=== PATIENT | female | born 2000 | race Asian ===

== ENCOUNTER 2021-11-01 04:34 | Emergency (ER) | payer SELFPAY ==
[~2021-11-01] VITALS: Ht 155 cm; Wt 50.0 kg
--- NOTE | 2021-11-01 04:46 | ED GU-Female ---
General Chief Complaint: OB < 20 WEEKS Stated Complaint: MISCARRIAGE Source: patient (VAGUE,LIMITED HISTORIAN) (JITENDRA TREJO DO) History of Present Illness Date Seen by Provider: Nov 01, 2021 Time Seen by Provider: 04:36 Initial Comments PT ARRIVES VIA EMS FROM HOME PT THINKS SHE IS ABOUT 3 MONTHS --CANNOT STATE WHEN LMP WAS GOT UP TO BATHROOM AT 0300, AND HAS HAD VAGINAL BLEEDING--JUST SAT ON TOILET FOR AN HOUR, BLEEDING INTO TOILET, AND CALLED EMS. HAS NOT USED ANY PADS NO ABDOMINAL PAIN, BUT DOES HAVE A LOWER BACK ACHE NO NAUSEA/VOMITING NO FEVER NO OB CARE PT IS --FIRST WAS FULL TERM, NORMAL AND DELIVERY WITHOUT COMPLICATIONS PT JUST CAME HERE LESS THAN 2 MONTHS AGO FROM [facility]. HAS NOT HAD COVID VACCINE PCP: NONE (JITENDRA TREJO DO) Allergies and Home Medications Allergies Coded Allergies: No Known Drug Allergies (Unverified , 11/01/21) Patient Home Medication List Home Medication List Reviewed: Yes (YANDY DERAS MD) No Active Prescriptions or Reported Meds Review of Systems Review of Systems Constitutional: no symptoms reported Respiratory: no symptoms reported Cardiovascular: no symptoms reported Gastrointestinal: no symptoms reported Genitourinary: see HPI : Yes Musculoskeletal: see HPI, back pain Skin: no symptoms reported Psychiatric/Neurological: No Symptoms Reported (JITENDRA TREJO DO) Past Biyjpsy-Fodors-Vfsoci Hx Patient Social History Tobacco Use?: No Substance use?: No Alcohol Use?: Yes Alcohol Frequency: Once in a while Pt feels they are or have been: No (JITENDRA TREJO DO) Past Medical History Surgery/Hospitalization HX: denies Surgeries: No Respiratory: No Cardiac: No Neurological: No Genitourinary: No Gastrointestinal: No Musculoskeletal: No Endocrine: No HEENT: No Cancer: No Psychosocial: No Integumentary: No Blood Disorders: No (JITENDRA TREJO DO) Physical Exam Vital Signs Vital Signs - First Documented 11/01/21 04:36 Temp 36.9 Pulse 76 Resp 16 B/P (MAP) 105/65 (78) Pulse Ox 100 O2 Delivery Room Air (YANDY DERAS MD) Vital Signs Capillary Refill : (JITENDRA TREJO DO) Height, Weight, BMI Height: '" Weight: lbs. oz. kg; BMI Method: General Appearance: WD/WN, no apparent distress, thin (VERY PETITE), other (FLAT AFFECT. DOES NOT APPEAR TO BE IN ANY DISCOMFORT OR DISTRESS) HEENT: PERRL/EOMI; No pale conjunctivae (R), No pale conjunctivae (L) Neck: normal inspection Cardiovascular: regular rate, rhythm, no murmur Respiratory: normal breath sounds Gastrointestinal: non tender, soft, other (ABDOMEN IS COMPLETELY FLAT) Pelvic: other (PT WITH ACTIVE BLEEDING, LARGE CLOT JUST PROTRUDING FROM VAGINA. MASSIVE CLOT AT LEAST 10 CM IN DIAMETER PASSED WHEN SPECULUM PLACE. THERE IS A LARGE PIECE OF TISSUE PROTRUDING FROM CERVIX, AND IS RESTING JUST OUTSIDE OF INTROITUS--HAS APPEARANCE OF PRODUCTS OF CONCEPTION--HAS APPEARANCE OF PLACENTAL-TYPE TISSUE. STILL WITH MODERATE ACTIVE BLEEDING AND PASSING PALM- SIZED CLOTS. CERVIX IS DILATED TO 3 CM) Back: normal inspection Extremities: normal inspection Neurologic/Psychiatric: no motor/sensory deficits, alert, oriented x 3 Skin: normal color (DARK SKINNED), warm/dry (JITENDRA TREJO DO) Progress/Results/Core Measures Suspected Sepsis SIRS Temperature: Pulse: Respiratory Rate: Laboratory Tests 11/01/21 04:45: White Blood Count 8.5 Blood Pressure / Mean: Laboratory Tests 11/01/21 04:45: Platelet Count 251 (JITENDRA TREJO DO) Results/Orders Lab Results Laboratory Tests Test 11/01/21 04:45 11/01/21 08:12 Range/Units White Blood Count 8.5 4.3-11.0 10^3/uL Red Blood Count 3.86 3.80-5.11 10^6/uL Hemoglobin 11.7 9.8 L 11.5-16.0 g/dL Hematocrit 34 L 28 L 35-52 % Mean Corpuscular Volume 88 80-99 fL Mean Corpuscular Hemoglobin 30 25-34 pg Mean Corpuscular Hemoglobin Concent 35 32-36 g/dL Red Cell Distribution Width 11.4 10.0-14.5 % Platelet Count 251 130-400 10^3/uL Mean Platelet Volume 8.6 L 9.0-12.2 fL Immature Granulocyte % (Auto) 0 % Neutrophils (%) (Auto) 65 42-75 % Lymphocytes (%) (Auto) 24 12-44 % Monocytes (%) (Auto) 9 0-12 % Eosinophils (%) (Auto) 3 0-10 % Basophils (%) (Auto) 0 0-10 % Neutrophils # (Auto) 5.5 1.8-7.8 10^3/uL Lymphocytes # (Auto) 2.0 1.0-4.0 10^3/uL Monocytes # (Auto) 0.7 0.0-1.0 10^3/uL Eosinophils # (Auto) 0.2 0.0-0.3 10^3/uL Basophils # (Auto) 0.0 0.0-0.1 10^3/uL Immature Granulocyte # (Auto) 0.0 0.0-0.1 10^3/uL Human Chorionic Gonadotropin, Quant 3077 H <5 MIU/ML (YANDY DERAS MD) My Orders Orders - YANDY DERAS MD Hemoglobin And Hematocrit (11/01/21 07:45) Misoprostol Tablet (Cytotec Tablet) (11/01/21 08:47) (YANDY DERAS MD) Medications Given in ED (YANDY DERAS MD) Vital Signs/I&O 11/01/21 10:42 Pulse 77 Resp 16 B/P (MAP) 105/66 Pulse Ox 98 O2 Delivery Room Air (YANDY DERAS MD) Vital Signs/I&O Capillary Refill : (JITENDRA TREJO DO) Progress Note : Progress Note GIVEN IV FLUIDS PRODUCTS THAT ARE PROTRUDING FROM CERVIX HAVE ADVANCED TO JUST OUTSIDE OF INTROITUS, BUT THEN STOPPED ADVANCING, DESPITE PT ACTIVELY PUSHING AND GENTLE TRACTION AND SWEEPING OF CERVIX. ACTIVE BLEEDING CONTINUES. DR. SKINNER CONTACTED, AND ARRIVED SHORTLY AFTER, AND WAS ABLE TO MANUALLY EXTRACT THE PRODUCTS AND ACTIVE BLEEDING IMMEDIATELY STOPPED. PRODUCTS SENT TO LAB FOR PATHOLOGY CYTOTEC GIVEN PER DR. SKINNER'S INSTRUCTIONS 0600--CERVIX VISUALIZED WITH SPECULUM, AND HAS ONLY A VERY SLOW TRICKLE OF BLOOD. PT STATES SHE IS NOT HAVING ANY CRAMPING AT THIS TIME. BP DROPPED BRIEFLY TO 70'S SYSTOLIC, BUT QUICKLY BACK UP TO 95 SYSTOLIC BEFORE ADDITIONAL FLUIDS WERE GIVEN. PT DID GET DIZZY ON STANDING, BUT NO DROP IN BP. WILL OBTAIN ULTRASOUND AND CALL DR. SKINNER WITH RESULTS. 0630--CARE TURNED OVER TO DR. DERAS. (JITENDRA TREJO DO) Progress Note : Time: 08:36 Progress Note I assumed care of this patient from Dr. Trejo at shift change. She has received 2 L of IV fluid. She is no longer dizzy upon standing and systolic blood pressure on standing was 96. A repeat hemoglobin after fluids was 9.8. Patient denies any pain. Bleeding seems to have slowed considerably. Dr. SKINNER return to the ER to inquire about patient status. He recommends an additional dose of Cytotec at 0900 and discharge if she is stable. (YANDY DERAS MD) Diagnostic Imaging Diagonstic Imaging: Ultrasound Plain Films/CT/US/NM/MRI: pelvis Comments Ultrasound report reviewed. See report below: NAME: DANIELITO [facility]IRANDA [facility] REC#: [id number] PT STATUS: REG ER : 2001 PHYSICIAN: JITENDRA TREJO DO ADMIT DATE: 11/01/21/ER Signed Date of Exam:11/01/21 US OB<14 WKS SNGLE W/TRANSVAG PROCEDURE: Pelvic complete, transabdominal and transvaginal sonogram. Limited pelvic doppler. TECHNIQUE: Multiple real-time grayscale images were obtained of the pelvis in various projections transabdominally and transvaginally. Limited pelvic duplex images were obtained. HISTORY: Miscarriage COMPARISON: None available. FINDINGS: Uterus: The uterus is anteverted and measures 8.2 x 5.0 x 5.9 cm. The myometrium is homogeneous without fibroids. Endometrium: The endometrium is increased in thickness and measures 2.3 cm. There is no fluid within the endometrial cavity. No intrauterine gestational sac is seen. Adnexa: Both ovaries have a normal physiologic appearance. The right ovary measures 2.8 x 1.8 x 1.7 cm and the left ovary measures 2.5 x 1.4 x 1.5 cm. Duplex images reveal normal vascular flow to both ovaries. Other: There is no free fluid within the pelvis. IMPRESSION: 1. Thickened appearance of the endometrium without visualized gestational sac. Findings could be seen with early , failed , or nonvisualized ectopic . Recommend correlation with beta hCG and follow-up ultrasound as clinically indicated. Dictated by: Dictated on workstation # [id number] Dict: 11/01/21806 Trans: 11/01/21824 [facility] [id number] Interpreted by: KATIE HOWARD DO Electronically signed by: KATIE HOWARD DO 11/01/21824 (YANDY DERAS MD) Departure Communication (Admissions) 0526--SPOKE WITH DR. SKINNER, WILL BE IN TO SEE PT 0535--DR SKINNER HERE TO SEE PT. (JITENDRA TREJO DO) Impression Primary Impression: Spontaneous miscarriage Additional Impressions: Vaginal hemorrhage Acute blood loss anemia Disposition: HOME, SELF-CARE Condition: Improved Departure-Patient Inst. Decision time for Depature: 10:32 (YANDY DERAS MD) Referrals: UNKNOWN (PCP) Primary Care Physician NANCY SKINNER DO Patient Instructions: Miscarriage Add. Discharge Instructions: Drink plenty of fluids and eat a well-balanced diet. In particular, eat foods high in iron such as red meats and leafy green vegetables. This will help replenish your blood loss from bleeding. You should also take a multivitamin or vitamin daily. If you develop secondary symptoms of severe anemia such as shortness of breath, lightheadedness, weakness, etc. please return to care for further evaluation. You should expect some continued bleeding and cramping for the next several days. Return to the ER if the symptoms become more severe or are escalating. Also return to the ER if you develop new symptoms or problems such as fever. Call Dr. SKINNER to arrange a follow-up appointment. His phone number is below. Call the ER or Dr. SKINNER's office with questions or concerns. All discharge instructions reviewed with patient and/or family. Voiced understanding. Scripts No Active Prescriptions or Reported Meds Copy Copies To 1: NANCY SKINNER LISA K DO Nov 01, 2021 04:46 YANDY DERAS MD Nov 01, 2021 08:39
[2021-11-01 04:55] LABS: BASOPHILS % (AUTO) 0 % (0-10); EOSINOPHILS # (AUTO) 0.2 10^3/uL (0.0-0.3); EOSINOPHILS % (AUTO) 3 % (0-10); HEMATOCRIT 34 % (35-52); HEMOGLOBIN 11.7 g/dL (11.5-16.0); LYMPHOCYTES % (AUTO) 24 % (12-44); MEAN CORPUSCULAR HEMOGLOBIN 30 pg (25-34); MEAN CORPUSCULAR HGB CONC 35 g/dL (32-36); MEAN CORPUSCULAR VOLUME 88 fL (80-99); MEAN PLATELET VOLUME 8.6 fL (9.0-12.2); MONOCYTES # (AUTO) 0.7 10^3/uL (0.0-1.0); MONOCYTES % (AUTO) 9 % (0-12); NEUTROPHILS # (AUTO) 5.5 10^3/uL (1.8-7.8); NEUTROPHILS % (AUTO) 65 % (42-75); PLATELET COUNT 251 10^3/uL (130-400); WHITE BLOOD COUNT 8.5 10^3/uL (4.3-11.0)
[2021-11-01] MEDS ORDERED: NS IV 1000 ML 1,000 ML IV SCH (05:30)
[2021-11-01] MEDS ORDERED: NS IV 1000 ML 1,000 ML IV ONE (06:15)
[2021-11-01 07:00] VITALS: BP_SYST 104; BP_SYST 97; BP_SYST 98; BP_DIAS 61; BP_DIAS 63; BP_DIAS 66
--- NOTE | 2021-11-01 08:13 | Diagnostic Imaging Report ---
PROCEDURE: Pelvic complete, transabdominal and transvaginal sonogram. Limited pelvic doppler. TECHNIQUE: Multiple real-time grayscale images were obtained of the pelvis in various projections transabdominally and transvaginally. Limited pelvic duplex images were obtained. HISTORY: Miscarriage COMPARISON: None available. FINDINGS: Uterus: The uterus is anteverted and measures 8.2 x 5.0 x 5.9 cm. The myometrium is homogeneous without fibroids. Endometrium: The endometrium is increased in thickness and measures 2.3 cm. There is no fluid within the endometrial cavity. No intrauterine gestational sac is seen. Adnexa: Both ovaries have a normal physiologic appearance. The right ovary measures 2.8 x 1.8 x 1.7 cm and the left ovary measures 2.5 x 1.4 x 1.5 cm. Duplex images reveal normal vascular flow to both ovaries. Other: There is no free fluid within the pelvis. IMPRESSION: 1. Thickened appearance of the endometrium without visualized gestational sac. Findings could be seen with early , failed , or nonvisualized ectopic . Recommend correlation with beta hCG and follow-up ultrasound as clinically indicated. Dictated by: Dictated on workstation # [id number]
[2021-11-01 08:19] LABS: HEMOGLOBIN 9.8 g/dL (11.5-16.0)
[2021-11-01 10:42] VITALS: BP 105/66
--- NOTE | 2021-11-01 12:33 | Consultation ---
History of Present Illness History of Present Illness Patient Consulted On(malik/time) 11/01/21 12:11 Date Seen by Provider: Nov 01, 2021 Time Seen by Provider: 04:45 Reason for Visit: Miscarriage History of Present Illness Patient presented to ER with concerns of miscarriage at home. Unsure of lmp. She said that she had passed some tissue and bleeding heavy at home. I was con tacted by ER physician due to tissue stuck in cervical os. Reports hgb was 12 at arrival. Allergies and Home Medications Allergies Coded Allergies: No Known Drug Allergies (Unverified , 11/01/21) Patient Home Medication List Home Medication List Reviewed: Yes No Active Prescriptions or Reported Meds Past Bwtixcg-Hkehao-Wrxcjh Hx Patient Social History Substance use?: No Alcohol Use?: Yes Alcohol Frequency: Once in a while Pt feels they are or have been: No Past Medical History Surgery/Hospitalization HX: denies Surgeries: No Respiratory: No Cardiac: No Neurological: No Last Menstrual Period: Aug 09, 2021 Genitourinary: No Gastrointestinal: No Musculoskeletal: No Endocrine: No HEENT: No Cancer: No Psychosocial: No Integumentary: No Blood Disorders: No Review of Systems-General Constitutional: see HPI EENTM: see HPI Respiratory: see HPI Cardiovascular: see HPI Genitourinary: see HPI : Yes LMP: Sep 21, 2021 Musculoskeletal: see HPI Skin: see HPI Psychiatric/Neurological: See HPI All Other Systems Reviewed Negative Unless Noted: Yes Physical Exam-General Problems Physical Exam Vital Signs Vital Signs - First Documented 11/01/21 04:36 Temp 36.9 Pulse 76 Resp 16 B/P (MAP) 105/65 (78) Pulse Ox 100 O2 Delivery Room Air Capillary Refill : Less Than 3 Seconds General Appearance: moderate distress HEENT: PERRL/EOMI Neck: non-tender Respiratory: chest non-tender Cardiovascular: regular rate, rhythm Comments Patient in lithotomy position in the ER room 7. Speculum used to identify POC likely placental tissue at the cervix, which is teased out using a ring forcep. Bleeding significantly subsides after this. Assessment/Plan Assessment/Plan Admission Diagnosis/Plan Diagnosis: 21 yo with likely complete SAB Acute vaginal hemorrhage P: Pelvic US ordered and if WNL will plan for dismissal from ER with follow up outpatient Cytotec 600 mcg PO given at 5am and 9 am to help control and stabilize bleeding Will need follow up out patient to follow bhcg levels. Admission Status: Other (Outpt Proc) NANCY SKINNER DO Nov 01, 2021 12:33
== END 2021-11-01 10:42 | disposition home or self-care (01) ==
LOC: ER 04:36
DX: O03.9 Complete or unspecified spontaneous abortion without complication (principal); N93.9 Abnormal uterine and vaginal bleeding, unspecified; D62 Acute posthemorrhagic anemia; Z3A.00 Weeks of gestation of pregnancy not specified
CPT/HCPCS: 36415; 76801; 76817; 84702; 85014; 85018; 85025; 86900; 86901